=== PATIENT | male | born 1980 | race Caucasian/White ===

== ENCOUNTER 2020-01-06 14:55 | Emergency (ER) | payer OTHER, SELFPAY ==
--- NOTE | 2020-01-06 14:56 | XR_ITS ---
WS: [id number] RIGHT HAND: 3 VIEW(S) TECHNIQUE: PA, oblique and lateral. HISTORY: injury COMPARISON: None available. Imaging is performed with a splint on the first finger. Nondisplaced fracture through the base of the distal phalanx of the first finger. Fracture line extends intra-articular without displacement. Extensive soft tissues injury surrounding the first finger with no foreign body. XR/XR hand RT min 3V* [id number] IMPRESSION: 1. Extensive soft tissue injury distal first finger. 2. Nondisplaced fracture distal phalanx first finger with intra-articular exte nsion.
[2020-01-06 15:25] VITALS: BP 139/98; PULSE 91; RESP 14; TEMP 35.9; O2SAT 99; BMI 31.3
--- NOTE | 2020-01-06 16:28 | ED_ITS ---
HPI - Extremity Problem General: Chief complaint: Extremity Injury, Lower Stated complaint: r thumb injury Time Seen by Provider: 01/06/20 16:20 Source: patient Mode of arrival: ambulatory Limitations: no limitations History of Present Illness: HPI Narrative: 40-year-old male who states last week he crushed his right thumb between a sprocket and chain. He was seen at [facility] and had sutures placed and placed in a splint. Patient states he has had continued pain. He states that they told him he had an open fracture and he was started on antibiotics along with pain meds. Patient still has sutures in place but states his thumb was swollen and want to get it rechecked. He denies any fevers. MD Complaint: extremity pain Onset (ago): day(s) Location: right Severity scale (1-10): 5 Relieving factors: nothing Exacerbating factors: nothing Associated symptoms: Deny chest pain, fever(s) or rash Review of Systems Const: Denies: fever(s), chills, body aches or change in appetite Eyes: Denies: blurry vision or eye discomfort ENMT: Denies: throat pain or dental pain Card: Denies: chest pain Resp: Denies: dyspnea GI: Denies: abdominal pain, nausea, vomiting or diarrhea : Denies: dysuria Musc: Reports: joint pain Skin/Breast: Denies: rash Neuro: Denies: headache(s) Psych: Denies: depression Fredy/Lymph: Denies: easy bruising All/Imm: Denies: urticaria PFSH ED PFSH: Social History Smoking and tobacco status: former smoker Physical Exam Const: COMMON NORMALS: no acute distress, patient oriented x3 and healthy appearing HENMT: COMMON NORMALS: normocephalic and atraumatic HEAD & SCALP: normocephalic and atraumatic Eye: COMMON NORMALS: Equal, round and reactive pupils present and EOMs intact bilaterally PUPIL: Yes Equal, round and reactive pupils present Neck/C-Spine: COMMON NORMALS: full ROM and supple Chest: COMMONS NORMALS: normal inspection of the chest and normal palpation of entire chest wall Resp: COMMON NORMALS: normal respiratory effort, No retractions, No use of accessory muscles and clear to auscultation bilaterally AUSCULTATION: clear to auscultation bilaterally Cardio: COMMON NORMALS: regular rate, regular rhythm and No murmurs present (Cardio) RATE: regular rate RHYTHM: regular rhythm GI: COMMON NORMALS: Normal to inspection, nondistended, normoactive bowel sounds present, Soft to palpation, non-tender and no masses PALPATION: Yes S oft to palpation Extremity: COMMON NORMALS: full ROM NARRATIVE EXTREMITY EXAM: Extensive injury to right thumb. Multiple sutures in place with swelling with no erythema or drainage. Neuro: COMMON NORMALS: patient oriented x3, moves all extremities and no focal motor deficits Psych: COMMON NORMALS: mental status grossly normal, Normal thought process present and cooperative THOUGHT PROCESS: Normal thought process present Skin: COMMON NORMALS: no rashes or lesions noted and no wounds GENERAL SKIN EXAM: no rashes or lesions noted Course Vital Signs: Vital signs: Vital Signs Temperature 96.7 F L 01/06/20 15:25 Pulse Rate 91 01/06/20 15:25 Respiratory Rate 14 01/06/20 15:25 Blood Pressure 139/98 01/06/20 15:25 Pulse Oximetry 99 01/06/20 15:25 MDM - Extremity (Nontraumatic) MDM Narrative: Medical decision making narrative: Patient presents here with with crush injury to his thumb that was seen at [facility] and had sutures placed. Patient has been on antibiotics along with pain meds. He does have swelling likely due to the injury. I see no signs of acute infection. Due to it being an open fracture injury we will get him follow-up with orthopedics. We will re-splint him and he is to follow-up with orthopedics in 1 to 3 days. Discharge Plan Discharge Patient Disposition: Home, Self-Care Clinical Impression: Crushing injury of right thumb Qualifiers: Encounter type: initial encounter Qualified Code(s): S67.01XA - Crushing injury of right thumb, initial encounter Condition: Stable Discharge Orders: Discharge Order (Routine); Ordered 01/06/20 Ordered By: Wolfgang Ibarra Referrals: Geena Starkey MD [Physician] - 1-3 days Discharge Diet: Advance as tolerated Discharge Activity: Resume usual activity Patient Instructions: Crush Injury Coding Level of Care Code ED Support Team Assoc for Lindy Crockett
[2020-01-06 16:29] VITALS: RESP 17
[2020-01-06] MEDS: morphine 4 mg/mL SDV 1 mL IM (16:29)
--- NOTE | 2020-01-08 08:51 | DCPLANNER ---
energy efficient site manager had message to schedule a follow up appointment for patient with ortho. energy efficient site manager spoke with Pat at ortho, a follow up appointment is scheduled for , January 09, 2020 at 9:[address] Starkey. energy efficient site manager called November with [facility] and gave her the appointment information. energy efficient site manager faxed patients information to November.
--- NOTE | 2020-01-30 14:01 | DCPLANNER ---
Patient did attend appointment scheduled for 01.08.30 with ortho.
== END 2020-01-06 16:42 | disposition home or self-care (01) ==
LOC: ER 16:36
PROVIDERS: Emergency Provider Emergency Medicine
DX: S67.01XA Crushing injury of right thumb, initial encounter (principal); W23.0XXA Caught, crushed, jammed, or pinched between moving objects, initial encounter; Z87.891 Personal history of nicotine dependence
CPT/HCPCS: 12345; 73130; 96372; 99281; 99283; J2270